=== PATIENT | male | born 2005 | race Caucasian/White ===

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

== ENCOUNTER → 2024-08-15 | Outpatient (CLI) | payer OTHER ==
--- NOTE | 2024-08-15 14:11 | XR ---
EXAMINATION TYPE: XR tibia fibula bilateral DATE OF EXAM: 08/15/2024 1:59 PM COMPARISON: 08/01/2023 CLINICAL INDICATION: Male, 19 years old with history of D48.0 , Z71.3, I67.89, M12.9, pain TECHNIQUE: 2 view(s) obtained. FINDINGS: No acute fracture evident. There is a medullary airam knee prosthesis present. There is resection of th e proximal fibula. Scattered vascular surgical clips appear to be present. There may be nonunion of t he transverse fracture proximal third diaphyseal tibia Follow up exams can be performed 7-10 days from acute trauma for continued pain. IMPRESSION: 1. Old transverse fracture mid proximal tibia with medullary airam present. 2. No acute osseous abnormality radiographically apparent [facility], , 08/15/2024 2:09 PM
--- NOTE | 2024-08-15 15:12 | CT ---
EXAMINATION TYPE: CT chest wo con CT DLP: 454.4 mGycm, Automated exposure control for dose reduction was used. DATE OF EXAM: 08/15/2024 2:45 PM COMPARISON: CT chest 05/27/2022, 12/02/2020, 05/30/2019 CLINICAL INDICATION:Male, 19 years old with history of D48.0 , Z71.3, I67.89, M12.9; [facility], giant cell tumor TECHNIQUE: Multiple axial images were obtained through the chest without IV contrast. Lack of IV or o ral contrast limits evaluation of solid and hollow organ viscera. . Coronal and sagittal reformats re viewed. FINDINGS: LUNGS/ PLEURA: No pleural effusion, pneumothorax, or focal consolidation. No suspicious pulmonary nod ules or masses. AIRWAY: Patent and unremarkable.. HEART: Size within normal limits. . No pericardial effusion. No significant coronary artery calcifica tions. MEDIASTINUM: No gross evidence of adenopathy. Residual thymic tissue redemonstrated. VASCULATURE: No aortic aneurysm. MUSCULOSKELETAL: No acute osseous abnormalities SOFT TISSUES/LYMPH NODES: Bilateral gynecomastia redemonstrated. LOWER NECK: No significant findings. UPPER ABDOMEN: Partially visualized suspected splenomegaly again with stable anterior splenic 2.0 cm hypodense lesion. IMPRESSION: 1. No acute thoracic process. No evidence for thoracic metastatic disease. 2. Partially visualized splenomegaly again with stable anterior splenic 2.0 cm hypodense lesion which may represent a cyst or hemangioma versus other etiologies. Statistically benign. This can be furthe r evaluated with MR as clinically indicated. [facility], , 08/15/2024 3:10 PM
== END | disposition home or self-care (01) ==
LOC: RADCTMAIN 13:32
PROVIDERS: ATTEND Internal Medicine Hematology & Oncology
DX: S82.221A Displaced transverse fracture of shaft of right tibia, initial encounter for closed fracture (principal); D48.0 Neoplasm of uncertain behavior of bone and articular cartilage; Z71.3 Dietary counseling and surveillance; I67.89 Other cerebrovascular disease; M12.9 Arthropathy, unspecified; R16.1 Splenomegaly, not elsewhere classified
CPT/HCPCS: 71250